=== PATIENT | male | born 1975 | race Caucasian/White ===

== ENCOUNTER → 2022-02-12 07:03 | Outpatient (CLI) | payer BC, SELFPAY ==
--- NOTE | 2022-02-12 | DI.US.S_ITS ---
PROCEDURE: US SOFT TISSUE HEAD AND NECK INDICATIONS: BUFFALO HUMP TECHNIQUE: Real-time scanning was performed of the neck region of interest, with image documentation. Color Doppler was also utilized. COMPARISON: [facility], , C-SPINE W&WO CONTRAST, 09/14/2013, 9:07. FINDINGS: Scanning is performed at the area of clinical concern involving the left posterior neck. At this site, there is a nonvascular ovoid hypoechoic nodule seen that measures 3.9 x 1.1 x 3.9 cm. IMPRESSION: Likely lipoma seen at the area of clinical concern. If clinically appropriate, please consider follow-up CT or MRI for further characterization. Dictated by: Eddy Pritchard M.D. on 02/12/2022 at 9:49 Approved by: Eddy Pritchard M.D. on 02/12/2022 at 9:50
== END ==
PROVIDERS: PCP Internal Medicine; Referring Provider Registered Nurse; Visit Provider Registered Nurse
DX: R22.2 Localized swelling, mass and lump, trunk (principal)
CPT/HCPCS: 76536

== ENCOUNTER → 2022-03-22 15:42 | Outpatient (CLI) | payer BC, SELFPAY ==
[2022-03-22 16:50] LABS: COVID19 -Nasal RAPID Negative (Negative)
== END ==
PROVIDERS: PCP Internal Medicine; Visit Provider Surgery
DX: Z20.822 Contact with and (suspected) exposure to COVID-19 (principal); Z01.812 Encounter for preprocedural laboratory examination
CPT/HCPCS: 87635; C9803

== ENCOUNTER 2022-03-23 13:04 | Day surgery (SDC) | payer BC, SELFPAY ==
[2022-03-17 15:05] VITALS: BMI 30.4
--- NOTE | 2022-03-23 | PATH_ITS ---
[facility] Accession Number: [id number] . 01 Material submitted: . back - BACK MASS . 01 Clinical history: . SDC BENIGN LIPOMATOUS NEOPLASM OF SKIN AND SUBCUTANEOUS . 01 Diagnosis: Soft Tissue, Back, Excision: Lipoma with degenerative changes. MRV 03/26/2022 2101 Local . 01 Electronically signed: . Roselyn Shah MD, Pathologist NPI- [id number] . 01 Gross description: . Received in formalin in a specimen container labeled with the patient's name, medical record number, and back mass, is an oval shaped multilobulated, slightly cauterized, yellow-pink mass that measures 3.8 x 3.3 x 1.8 cm. The specimen outer surface is entirely inked in blue, and specimen is serially sectioned to reveal solid yellow unremarkable cut surfaces. The sales representative girls' apparel sections are submitted in cassettes A1-A2. ([id number]) /MRV 03/24/2022 1302 Local . 01 Pathologist provided ICD-10: D17.1 . 01 CPT . 106099 Specimen Comment: A courtesy copy of this report has been sent to [phone] Performed at: 01 [facility] [address] [place] [address], [place], [place] [id number] MD Lionel Lama MD Phone: [phone]
[2022-03-23 13:54] VITALS: BP 159/97; PULSE 92; RESP 16; TEMP 36.2; O2SAT 98; BMI 30.4
--- NOTE | 2022-03-23 13:57 | PM.PREOP ---
Pre-operative Note COVID-19 COVID-19 status: Negative Result date/Date tested (Pos, Neg/Pending): 03/22/22 Interval Note History & Physical reviewed/Exam performed by Physician: Yes Changes to H&P: No ASA Class (for procedural sedation): I
--- NOTE | 2022-03-23 14:34 | SUR.OPER ---
Prone on padded OR bed, head in foam head support, gel chest rolls, gel pad under knees, pillow under lower legs, toes free of pressure, arms secured on padded arm boards at <90 degrees abduction. Safety belt at thigh.
[2022-03-23] MEDS: LIDOCAINE 1% W/EPI 20 ML INJ (14:47)
[2022-03-23] MEDS: BUPIVACAINE 0.5% (PF) VIAL 3 ML INJ (15:15)
--- NOTE | 2022-03-23 15:28 | PM.OP.1 ---
Operative Date/Time/Diagnoses Date of procedure: 03/23/22 Time of procedure: 15:28 Pre-op diagnosis: Left upper back mass Post-op diagnosis: same Procedure & Clinicians Procedure: Excisional biopsy of left upper back mass Same procedure as scheduled: Yes Surgeon: Walter Linares Anesthesia Type: Local Operative Notes Procedure in detail: The patient was brought to the operating room and placed on the table in the prone position with the arms supported and his face elevated on foam cradle with oxygen flowing into the space. His arms were supported on arm boards. The No antibiotics were indicated. Left upper back was prepped and draped the usual fashion and a time-out was performed. We injected lidocaine over the mass and made a 6 cm incision through the skin and subcutaneous adipose tissue. We encountered the mass which appeared to be a lipoma. We dissected around the mass injecting additional local anesthetic as needed. The mass extended to the trapezius muscle fascia. Additional local was injected into the muscle. The mass which was about 3 cm x 3 cm was removed from the wound. There was 1 bleeder feeding the mass which was controlled with a 3-0 Vicryl suture in a [id number] manner. Once the wound was hemostatic we injected additional Marcaine into the deep aspects of the wound and closed in layers using multiple interrupted 3-0 Vicryl dermal sutures followed by a running 4 Monocryl subcuticular stitch. Steri-Strips were applied followed by a Telfa strips and Tegaderm. EBL: 40 mL Specimen: Left upper back mass Post-operative Condition: stable Disposition: PACU
[2022-03-23 15:30] VITALS: BP 145/99; PULSE 95; RESP 16; TEMP 36.7; O2SAT 97
--- NOTE | 2022-03-23 15:38 | SUR.OPER ---
no anesthesia, just local
--- NOTE | 2022-03-23 15:40 | SUR.PHASEII ---
Stable, alert & oriented, received no medication other than local. No questions/concerns. Ambulated to car.
== END 2022-03-23 15:39 | disposition home or self-care (01) ==
PROVIDERS: PCP Internal Medicine; Referring Provider Surgery; Visit Provider Surgery
PROC: (CPT 21931; principal; 2022-03-23 14:45)
DX: D17.1 Benign lipomatous neoplasm of skin and subcutaneous tissue of trunk (principal); I10 Essential (primary) hypertension
CPT/HCPCS: 21931

== ENCOUNTER 2023-08-27 11:38 | Emergency (ER) | payer BC, SELFPAY ==
[2023-08-27 11:44] VITALS: BP 187/115; PULSE 91; RESP 16; TEMP 36.7; O2SAT 98; BMI 29.8
--- NOTE | 2023-08-27 11:58 | DI.RAD.S_ITS ---
PROCEDURE: XR CHEST 1V INDICATIONS: chest pain TECHNIQUE: One view of the chest was acquired. COMPARISON: None. FINDINGS: Surgical changes and devices: None. Lungs and pleura: An incomplete inspiratory result is noted, causing a crowded appearance to the lung markings. No focal infiltrates are seen. No pneumothorax or significant pleural effusions are seen. Mediastinum: Mediastinal contours appear normal. Heart size is normal. Bones and chest wall: No suspicious bony lesions. Overlying soft tissues appear unremarkable. IMPRESSION: Low lung volumes, without an acute abnormality seen by plain film. Dictated by: Eddy Pritchard M.D. on 08/27/2023 at 11:46 Approved by: Eddy Pritchard M.D. on 08/27/2023 at 11:47
[2023-08-27 12:20] VITALS: PULSE 87; RESP 21; O2SAT 98
[2023-08-27 12:20] LABS: Add Manual Diff / Slide Review NO; Basophils Absolute Auto 100 /uL (0-100); Basophils Percent Auto 1.1 % (0-2); Eosinophils Absolute Auto 100 /uL (0-450); Eosinophils Percent Auto 2.1 % (2-4); Hematocrit 46.1 % (41-53); Hemoglobin 15.7 g/dL (13.5-17.5); Lymphocytes Absolute Auto 1300 /uL (1100-4500); Lymphocytes Percent Auto 24.3 % (25-40); Mean Corpuscular HGB Conc 34.2 % (30-36); Mean Corpuscular Hemoglobin 29.8 PG (26-34); Mean Corpuscular Volume 87.1 fL (80-100); Monocytes Absolute Auto 500 /uL (0-900); Monocytes Percent Auto 8.4 % (3-14); Neutrophils Absolute Auto 3500 /uL (1500-7000); Neutrophils Percent Auto 64.1 % (50-75); Platelet Count 195 X10^3/uL (150-400); Red Blood Cell Count 5.29 X10^6/uL (4.5-5.9); White Blood Cell Count 5.5 X10^3/uL (4.5-11.0)
[2023-08-27] MEDS: MAG HYDROX/ALUMINUM/SIMETH SUS 20 ML, LIDOCAINE VISCOUS 2% 15 ML PO (12:21)
[2023-08-27 12:30] VITALS: BP 199/116; PULSE 84; RESP 22; O2SAT 98
[2023-08-27 12:30] LABS: Prothrombin Time 11.5 SECONDS (9.4-12.5)
[2023-08-27 12:32] LABS: PTT Partial Thromboplastin Tim 29 SECONDS (25.1-36.5)
[2023-08-27 12:46] LABS: Alanine Aminotransferase 29 IU/L (<50); Albumin 4.8 g/dL (3.5-5.0); Albumin Globulin Ratio 1.3 (1.0-2.8); Alkaline Phosphatase 77 U/L (38-126); Aspartate Aminotransferase 38 IU/L (17-59); BUN Creatinine Ratio 16.9 (6-22); Bilirubin Total 0.8 mg/dL (0.2-1.3); Blood Urea Nitrogen 13 mg/dL (9-20); Calcium 10.1 mg/dL (8.4-10.2); Carbon Dioxide 29 mmol/L (22-32); Chloride 101 mmol/L (98-107); Creatine Kinase 121 U/L (55-170); D Dimer < 215 ng/ml (<500); Estimated Glomerular Filt Rate > 60 mL/min (>60); Globulin 3.6 g/dL (1.7-4.1); Glucose 108 mg/dL (70-100); Lipase 83 U/L (23-300); Magnesium 2.1 mg/dL (1.6-2.3); Potassium 3.9 mmol/L (3.4-5.1); Sodium 139 mmol/L (137-145); Total Protein 8.4 g/dL (6.3-8.2)
--- NOTE | 2023-08-27 12:54 | ED.CHESTPAIN ---
HPI - Chest Pain General Chief Complaint: Chest Pain Stated Complaint: severe acid reflux and heartburn Time Seen by Provider: 08/27/23 12:13 Source: patient Mode of arrival: Ambulatory History of Present Illness HPI narrative: Patient is a 47-year-old male history of hypertension acid reflux presenting today with increasing burning in his chest. 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 He says immediately after is egg Jeremyin back is had significant burning. Some point he had radiation down his left arm which lasted a 2nd. No significant shortness of breath. Abdominal pain. He does take 2400 mg of Motrin daily for ongoing arthritic like pain. He is not had any abdominal pain. He is not having any chest pain or shortness of breath now. He is concerned because 's brother had an SC and thought it was acid reflux. He is not a smoker Related Data Home Medications Medication Instructions Recorded Confirmed amlodipine 5 mg tablet 5 mg PO DAILY 02/22/22 04/07/22 lisinopril 20 mg tablet 20 mg PO DAILY 02/22/22 04/07/22 multivitamin (Daily Multi-Vitamin 1 tab PO DAILY 02/22/22 04/07/22 tablet) Previous Rx's Medication Instructions Recorded omeprazole 20 mg capsule,delayed 20 mg PO DAILY #30 caps 08/27/23 release Allergies Allergy/AdvReac Type Severity Reaction Status Date / Time No Known Drug Allergies Allergy Verified 04/07/22 08:53 Patient History Medical History Hernia of abdominal wall Herniated cervical disc Hypertension Social History household members: spouse Smoking Status: Never smoker alcohol intake: current Smoking Status: Never smoker alcohol intake frequency: 3 or more drinks per day Substance Use Type: does not use Exam Initial Vital Signs Initial Vital Signs: Vital Signs Temperature 98.1 F 08/27/23 11:44 Pulse Rate 91 H 08/27/23 11:44 Respiratory Rate 16 08/27/23 11:44 Blood Pressure 187/115 H 08/27/23 11:44 Pulse Oximetry 98 08/27/23 11:44 Oxygen Delivery Method Room Air 08/27/23 11:44 GENERAL: Alert pleasant 47 and in no acute distress. HEENT: Head atraumatic,EOMI, pupils reactive, face symmetric, moist mucous membranes CARDIOVASCULAR: Regular rate and rhythm without murmurs, rubs or gallops. RESPIRATORY: Breath sounds equal bilaterally, no wheezes rales or rhonchi. ABDOMEN: Soft, nontender. Normoactive bowel sounds all 4 quadrants. No guarding or rebound. EXTREMITIES: Normal range of motion, no clubbing or edema. Neurovascularly intact NEUROLOGICAL: Alert and oriented x4.Normal gait and speech. SKIN: Warm, dry, no laceration, no petechiae, no rashes or lesions. Course Orders Ordered: ED Orders 08/27/23 11:58 XR chest 1V Stat EKG-12 Lead Stat 08/27/23 12:09 Complete Blood Count AUTO DIFF Stat Comprehensive Metabolic Panel Stat D Dimer Stat Lipase Stat Magnesium Stat PTT Partial Thromboplastin Declan Stat Prothrombin Time INR Stat Troponin & CK Cardiac Panel Stat Discontinued Medications Al Hydrox/Mg Hydrox/Simethicone 20 ml/ Lidocaine HCl 15 ml 0 ml PO NOW ONE Stop: 08/27/23 12:14 Last Admin: 08/27/23 12:21 Dose: 45 ml Documented By: LAKIA Vital Signs Vital signs: Vital Signs - 8 hr 08/27/23 11:44 08/27/23 12:20 08/27/23 12:30 Temperature 98.1 F Pulse Rate 91 H 87 Respiratory Rate 16 21 Blood Pressure 187/115 H 199/116 H Pulse Oximetry 98 98 Oxygen Delivery Method Room Air Room Air 08/27/23 12:30 08/27/23 13:00 08/27/23 13:00 Temperature Pulse Rate 84 87 Respiratory Rate 22 20 Blood Pressure 206/126 H Pulse Oximetry 98 98 Oxygen Delivery Method 08/27/23 13:04 08/27/23 13:04 08/27/23 13:30 Temperature Pulse Rate 82 83 Respiratory Rate 22 20 Blood Pressure 185/122 H Pulse Oximetry 96 98 Oxygen Delivery Method 08/27/23 13:30 Temperature Pulse Rate Respiratory Rate Blood Pressure 158/96 H Pulse Oximetry Oxygen Delivery Method MDM - Chest Pain Lab Data 08/27/23 12:09 08/27/23 12:09 Labs: Lab Results 08/27/23 Range/Units 12:09 WBC 5.5 (4.5-11.0) X10^3/uL RBC 5.29 (4.5-5.9) X10^6/uL Hgb 15.7 (13.5-17.5) g/dL Hct 46.1 (41-53) % MCV 87.1 (80-100) fL MCH 29.8 (26-34) PG MCHC 34.2 (30-36) % RDW 14.0 (11.6-14.8) % Plt Count 195 (150-400) X10^3/uL Neut % (Auto) 64.1 (50-75) % Lymph % (Auto) 24.3 L (25-40) % [place] % (Auto) 8.4 (3-14) % Eos % (Auto) 2.1 (2-4) % Baso % (Auto) 1.1 (0-2) % Neut # (Auto) 3500 (7593-8978) /uL Lymph # (Auto) 1300 (4354-1593) /uL [place] # (Auto) 500 (0-900) /uL Eos # (Auto) 100 (0-450) /uL Baso # (Auto) 100 (0-100) /uL PT 11.5 (9.4-12.5) SECONDS INR 1.0 (0.9-1.3) APTT 29 (25.1-36.5) SECONDS D-Dimer < 215 (<500) ng/ml Sodium 139 (137-145) mmol/L Potassium 3.9 (3.4-5.1) mmol/L Chloride 101 (98-107) mmol/L Carbon Dioxide 29 (22-32) mmol/L BUN 13 (9-20) mg/dL Creatinine 0.77 (0.66-1.25) mg/dL Estimated GFR > 60 (>60) mL/min BUN/Creatinine Ratio 16.9 (6-22) Glucose 108 H (70-100) mg/dL Calcium 10.1 (8.4-10.2) mg/dL Magnesium 2.1 (1.6-2.3) mg/dL Total Bilirubin 0.8 (0.2-1.3) mg/dL AST 38 (17-59) IU/L ALT 29 (<50) IU/L Alkaline Phosphatase 77 (38-126) U/L Total Creatine Kinase 121 (55-170) U/L Troponin I < 0.012 (0.01-0.034) ng/mL Total Protein 8.4 H (6.3-8.2) g/dL Albumin 4.8 (3.5-5.0) g/dL Globulin 3.6 (1.7-4.1) g/dL Albumin/Globulin Ratio 1.3 (1.0-2.8) Lipase 83 (23-300) U/L Imaging Data Chest x-ray: Radiologist's Impression: PROCEDURE: XR CHEST 1V INDICATIONS: chest pain TECHNIQUE: One view of the chest was acquired. COMPARISON: None. FINDINGS: Surgical changes and devices: None. Lungs and pleura: An incomplete inspiratory result is noted, causing a crowded appearance to the lung markings. No focal infiltrates are seen. No pneumothorax or significant pleural effusions are seen. Mediastinum: Mediastinal contours appear normal. Heart size is normal. Bones and chest wall: No suspicious bony lesions. Overlying soft tissues appear unremarkable. IMPRESSION: Low lung volumes, without an acute abnormality seen by plain film. Dictated by: Eddy Pritchard M.D. on 08/27/2023 at 11:46 ECG Data Interpretation: Normal sinus rhythm rate 88, IA interval 90 QTC changes MDM Narrative Medical decision making narrative: Patient 47-year-old male history of hypertension acid reflux presenting today with burning his chest. He actually does feel in the his. This is very consistent reflux. Concern is he is quite hypertensive here in the ED with an elevated diastolic to 122. He does take amlodipine but only 2.5 mg along with lisinopril. Recommend that he check his blood pressure at home and talk with his PCP. There is no evidence of end-organ damage at this time. No EKG changes. Symptoms are most consistent with acid reflux. 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 We did discuss about risk factors. He may at some point require a stress test with his PCP. We discussed taking omeprazole to help with acid. He also is taking ibuprofen drinking coffee and has severe acid reflux. We discussed taking Tylenol instead of ibuprofen. Discharge Plan Departure Patient Disposition: Home Clinical Impression: GERD (gastroesophageal reflux disease) Instructions: DI for Gastroesophageal Reflux Disease (GERD) Activity Restrictions/Additional Instructions: *You have been diagnosed with acid reflux, hypertension *What to do: At this time please monitor your blood pressure 1 to 2 times daily record it and please talk with your primary care provider about adjusting medication. May also require an outpatient heart stress test. However today your symptoms are very consistent with acid reflux. *Continue to take medications as directed Omeprazole 20 mg once a day for to 4 weeks Tylenol 1000 mg every 6 hours if needed hymy-ka-gaflcfme pain Motrin 600 mg every 8 hours if needed for mild pain *Follow up with your primary care provider in 2-3 days or call [phone] *Return to ER if you should have increasing pain shortness of breath or any new, worsening or concerning symptoms Prescriptions: New omeprazole 20 mg capsule,delayed release(DR/EC) 20 mg PO DAILY Qty: 30 0RF No Action lisinopril 20 mg tablet 20 mg PO DAILY amlodipine 5 mg tablet 5 mg PO DAILY multivitamin [Daily Multi-Vitamin] Tablet 1 tab PO DAILY Referrals: Juan R Reyes MD [Primary Care Provider] - Stand Alone Forms: Patient Portal/API
[2023-08-27 13:00] VITALS: BP 206/126; PULSE 87; RESP 20; O2SAT 98
[2023-08-27 13:04] VITALS: BP 185/122; PULSE 82; RESP 22; O2SAT 96
[2023-08-27 13:30] VITALS: BP 158/96; PULSE 83; RESP 20; O2SAT 98
[2023-08-27 13:39] LABS: HEMOLYSIS 19 (0-50); Troponin I < 0.012 ng/mL (0.01-0.034)
== END 2023-08-27 13:59 | disposition home or self-care (01) ==
PROVIDERS: Emergency Provider Emergency Medicine; PCP Internal Medicine
DX: K21.9 Gastro-esophageal reflux disease without esophagitis (principal); R07.9 Chest pain, unspecified; I10 Essential (primary) hypertension
CPT/HCPCS: 36415; 71045; 80053; 82550; 83690; 83735; 84484; 85025; 85379; 85610; 85730; 93005; 93010; 99284

== ENCOUNTER → 2025-03-06 | Outpatient (CLI) | payer BC, SELFPAY ==
--- NOTE | 2025-03-06 14:41 | DI.RAD.S_ITS ---
PROCEDURE: XR TOE LT MIN 2V INDICATIONS: toe injury TECHNIQUE: Three views COMPARISON: None. FINDINGS: Bones: Transverse nondisplaced distal 1st phalangeal fracture Soft tissues: No suspicious soft tissue densities. IMPRESSION: First phalangeal fracture Approved by: Ericksno Evans M.D. on 03/06/2025 at 18:19
== END ==
PROVIDERS: PCP Internal Medicine; Referring Provider Chiropractor; Visit Provider Chiropractor
DX: S92.425A Nondisplaced fracture of distal phalanx of left great toe, initial encounter for closed fracture (principal); S90.212A Contusion of left great toe with damage to nail, initial encounter; X58.XXXA Exposure to other specified factors, initial encounter
CPT/HCPCS: 73660